=== PATIENT | female | born 2000 ===

== ENCOUNTER 2022-03-27 13:27 | Emergency (ER) | payer SELFPAY ==
[~2022-03-27] VITALS: Ht 170.2 cm; Wt 72.3 kg
[2022-03-27 14:17] VITALS: BP 113/69
[2022-03-27] MEDS ORDERED: ketorolac trometh inj. 60 MG/2 ML VIAL IM ONE (14:25)
[2022-03-27] MEDS ORDERED: IBUP-1986 PO (14:40)
== END 2022-03-27 14:56 | disposition home or self-care (01) ==
LOC: ER 13:28
DX: R07.89 Other chest pain (principal); M94.0 Chondrocostal junction syndrome [Tietze]; Z79.899 Other long term (current) drug therapy
CPT/HCPCS: 93005; 96372; 99283; J1885